=== PATIENT | female | born 1995 | race Two or more races ===

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

== ENCOUNTER 2021-11-29 11:57 | Emergency (ER) | payer SELFPAY ==
[~2021-11-29] VITALS: Ht 152.4 cm; Wt 92.1 kg
[~2021-11-29 11:57] MED LIST: CEPH-264 PO; METR500T PO
[2021-11-29] MEDS ORDERED: IV RINGERS,LACTATED 1000ML 1,000 ML IV ONE (12:30)
[2021-11-29 12:43] LABS: BASO # 0.1 x10^3/uL (0.0-0.2); BASO % 1 % (0-3); EOS # 0.1 x10^3/uL (0.0-0.7); EOS % 1 % (0-3); HEMATOCRIT 38.1 % (36.0-47.0); LYMPH # 1.8 x10^3/uL (1.0-4.8); LYMPH % 20 % (24-48); MEAN CORPUSCULAR HEMOGLOBIN 33 pg (25-35); MEAN CORPUSCULAR HGB CONC 34 g/dL (31-37); MEAN CORPUSCULAR VOLUME 96 fL (79-100); MONO # 0.5 x10^3/uL (0.0-1.1); MONO % 5 % (0-9); NEUT # 6.5 x10^3/uL (1.8-7.7); NEUT % 73 % (31-73); PLATELET COUNT 384 x10^3/uL (140-400); RED BLOOD COUNT 3.98 x10^6/uL (3.50-5.40); RED CELL DISTRIBUTION WIDTH 12.9 % (11.5-14.5); WHITE BLOOD COUNT 8.9 x10^3/uL (4.0-11.0)
[2021-11-29 12:48] LABS: CALCIUM 8.9 mg/dL (8.5-10.1); CREATININE 0.5 mg/dL (0.6-1.0); GFR 151.6; POTASSIUM 3.6 mmol/L (3.5-5.1)
[2021-11-29 12:56] LABS: BACTERIA,URINE FEW /HPF (0-FEW); RBC,URINE 0 /HPF (0-2); WBC,URINE RARE /HPF (0-4)
[2021-11-29 12:59] LABS: ALBUMIN 3.1 g/dL (3.4-5.0); ALBUMIN/GLOBULIN RATIO 0.7 (1.0-1.7); TOTAL BILIRUBIN 0.2 mg/dL (0.2-1.0); TOTAL PROTEIN 7.7 g/dL (6.4-8.2)
[2021-11-29] MEDS ORDERED: ACETAMINOPHEN 325 MG TABLET. PO ONE (13:00)
--- NOTE | 2021-11-29 14:01 | PHYS DOC ---
Past Medical History Past Medical History: No Pertinent History Past Surgical History: No Surgical History Smoking Status: Never Smoker Alcohol Use: None Drug Use: None General Adult EDM: Chief Complaint: ABDOMINAL PAIN IN HPI: HPI: Patient is a 26 year old A2 female at approximately 11 weeks 5 days gestation who presents with central abdominal pain. Patient rates her pain 5/10 and states it radiates to her back. She has been having this pain intermittently over a period greater than two months, beginning before she knew she was . She denies any N/V/D, constipation, dysuria, hematuria, dyspareunia, vaginal bleeding, vaginal discharge. Patient's first two pregnancie s resulted in miscarriage, and she states her current pain feels similar. Patient has an appointment at [facility] to establish care on 12/22/2021. Review of Systems: Review of Systems: Constitutional: See HPI Eyes: Denies change in visual acuity, visual field deficits or discharge HENT: Denies ear pain, nasal congestion or sore throat Respiratory: Denies cough or shortness of breath Cardiovascular: Denies chest pain, palpitations or edema GI: See HPI : See HPI Musculoskeletal: Denies back pain or joint pain Integument: Denies rash or other skin lesion Neurologic: Denies headache, focal weakness or sensory changes Heart Score: C/O Chest Pain: No Current Medications: Current Medications Medications (Trade) Dose Ordered Sig/Christine Start Time Stop Time Status Last Admin Dose Admin Acetaminophen (Tylenol) 650 mg 1X ONCE 11/29/21 13:00 11/29/21 13:01 DC 11/29/21 13:08 650 MG Ringer's Solution 1,000 ml @ 1,000 mls/hr 1X ONCE 11/29/21 12:30 11/29/21 13:29 DC 11/29/21 12:32 1,000 MLS/HR Allergies: Allergies: Allergies Coded Allergies Type Severity Reaction Last Updated Verified No Known Drug Allergies 11/27/16 No Physical Exam: PE: Constitutional: Well developed, well nourished, no acute distress, non-toxic appearance. HENT: Normocephalic, atraumatic, bilateral external ears normal, nose normal. Eyes: EOMI, conjunctiva normal, no discharge. Neck: Normal range of motion, no stridor. Abdomen: Bowel sounds normal, soft, no tenderness, no masses, no pulsatile masses. Skin: Warm, dry, no erythema, no rash. Back: No tenderness, no CVA tenderness. Extremities: No cyanosis, no clubbing, ROM intact, no edema. Neurologic: Alert and oriented x4, normal motor function, normal sensory function, no focal deficits noted. Current Patient Data: Labs: Laboratory Tests Test 11/29/21 12:13 11/29/21 12:16 11/29/21 12:22 Urine Collection Type Unknown Urine Color (Auto) Yellow Urine Turbidity Hazy Urine pH (Auto) 6.0 (<5.0-8.0) Urine Specific [place] 1.027 (1.000-1.030) Urine Protein (Auto) Negative mg/dL (Negative) Urine Glucose (Auto)(UA) Negative mg/dL (Negative) Urine Ketones (Auto) Negative mg/dL (Negative) Urine Blood (Auto) Negative (Negative) Urine Nitrite Negative (Negative) Urine Bilirubin (Auto) Negative (Negative) Urine Urobilinogen (Auto) Normal mg/dL (Normal) Urine Leukocyte Esterase (Auto) Negative (Negative) Urine RBC 0 /HPF (0-2) Urine WBC Rare /HPF (0-4) Urine Squamous Epithelial Cells Many /LPF Urine Bacteria Few /HPF (0-FEW) Urine Mucus Marked /LPF POC Urine HCG, Qualitative Hcg positive (Negative) White Blood Count 8.9 x10^3/uL (4.0-11.0) Red Blood Count 3.98 x10^6/uL (3.50-5.40) Hemoglobin 13.0 g/dL (12.0-15.5) Hematocrit 38.1 % (36.0-47.0) Mean Corpuscular Volume 96 fL (79-100) Mean Corpuscular Hemoglobin 33 pg (25-35) Mean Corpuscular Hemoglobin Concent 34 g/dL (31-37) Red Cell Distribution Width 12.9 % (11.5-14.5) Platelet Count 384 x10^3/uL (140-400) Neutrophils (%) (Auto) 73 % (31-73) Lymphocytes (%) (Auto) 20 % (24-48) L Monocytes (%) (Auto) 5 % (0-9) Eosinophils (%) (Auto) 1 % (0-3) Basophils (%) (Auto) 1 % (0-3) Neutrophils # (Auto) 6.5 x10^3/uL (1.8-7.7) Lymphocytes # (Auto) 1.8 x10^3/uL (1.0-4.8) Monocytes # (Auto) 0.5 x10^3/uL (0.0-1.1) Eosinophils # (Auto) 0.1 x10^3/uL (0.0-0.7) Basophils # (Auto) 0.1 x10^3/uL (0.0-0.2) Maternal Serum HCG Beta Subunit 14616 mIU/mL (0-5) H Sodium Level 135 mmol/L (136-145) L Potassium Level 3.6 mmol/L (3.5-5.1) Chloride Level 103 mmol/L (98-107) Carbon Dioxide Level 25 mmol/L (21-32) Anion Gap 7 (6-14) Blood Urea Nitrogen 10 mg/dL (7-20) Creatinine 0.5 mg/dL (0.6-1.0) L Estimated GFR (Cockcroft-Gault) 151.6 BUN/Creatinine Ratio 20 (6-20) Glucose Level 85 mg/dL (70-99) Calcium Level 8.9 mg/dL (8.5-10.1) Total Bilirubin 0.2 mg/dL (0.2-1.0) Aspartate Amino Transferase (AST) 20 U/L (15-37) Alanine Aminotransferase (ALT) 40 U/L (14-59) Alkaline Phosphatase 88 U/L (46-116) Total Protein 7.7 g/dL (6.4-8.2) Albumin 3.1 g/dL (3.4-5.0) L Albumin/Globulin Ratio 0.7 (1.0-1.7) L Lipase 62 U/L (73-393) L Laboratory Tests 11/29/21 12:22 Laboratory Tests 11/29/21 12:22 CLUE CELLS CLUE CELLS PRESENT ALTERED KD ALTERED KD PRESENT SUGGESTIVE OF BACTERIAL VAGINOSIS Vital Signs: Vital Signs Date Time Temp Pulse Resp B/P (MAP) Pulse Ox O2 Delivery O2 Flow Rate FiO2 11/29/21 15:30 71 16 113/64 (80) 99 Room Air 11/29/21 14:53 76 16 119/76 (90) 98 Room Air 11/29/21 14:16 73 108/59 (75) 100 Room Air 11/29/21 13:46 78 20 115/64 (81) 99 Room Air 11/29/21 13:16 68 109/61 (77) 100 Room Air 11/29/21 12:46 66 20 106/56 (73) 100 Room Air 11/29/21 12:16 76 16 124/66 (85) 100 Room Air 11/29/21 12:05 98.2 79 18 124/66 (85) 100 Room Air 98.2 Radiology/Procedures: Radiology/Procedures: PROCEDURE: OB < 14 WKS OB ultrasound less than 14 weeks and transvaginal OB ultrasound HISTORY: Pelvic pain and Sonographic examination of the pelvis was performed by transabdominal and endovaginal technique. Multiple static images were obtained. Mobile silhouettes of 14 weeks: There is a single live intrauterine . The heartbeat is confirmed at 173 beats per minute. The crown-rump length of 2.5 cm corresponds to a 9 week 2 day gestational age and estimated date of confinement of July 02, 2022. There is no visualization of structures at this early gestational age. The LMP 09/08/2021 corresponds to 11 week 5 day gestational age and estimated date of confinement of June 15, 2022. There is an anterior fibroid that measures 4.0 x 4.0 x 4.2 cm. The ovaries appear normal with normal blood flow. Transvaginal ultrasound pelvis: The right ovary measures 3.1 x 3.1 x 9 size. The left ovary measures 2.1 x 2.2 x 1.5 Jacques. IMPRESSION: 1. Single live intrauterine at 9 weeks 2 days gestational age. Discrepancy with that by LMP is likely secondary to an inaccurate LMP. 2. Probable uterine fibroid not seen in the November 27, 2016 examination. A short-term follow-up ultrasound could be performed if clinically indicated otherwise a structural survey will be performed at 18-21 weeks gestational age. Electronically signed by: Anselmo Elias III, MD (11/29/2021 2:24 PM) [id number] Course & Med Decision Making: Course & Med Decision Making Pertinent Labs and Imaging studies reviewed. (See chart for details) Patient is a 26-year-old female approximately 11 weeks and her sixth who presents with abdominal pain. Work-up today will include urinalysis, labs, wet prep, transvaginal ultrasound. Ultrasound reveals 4 x 4 x 4.2 cm fibroid as well as a single live IUP. Wet prep shows bacterial vaginosis. Patient will be treated with MetroGel. Patient was informed of all findings. Tylenol successfully relieved her pain. I advised that she keep her appointment with [facility] for establishing care. A printout of her ultrasound was provided to take with her to her appointment. Return precautions were provided. Patient understands and is agreeable to discharge plan. Dragon Disclaimer: [employer] Disclaimer: This electronic medical record was generated, in whole or in part, using a voice recognition dictation system. Departure Departure Impression: Primary Impression: Abdominal pain during Qualified Codes: O26.891 - Other specified related conditions, first trimester; R10.9 - Unspecified abdominal pain Additional Impressions: Bacterial vaginosis Uterine fibroid in Disposition: 01 HOME / SELF CARE / HOMELESS Condition: STABLE Referrals: NO PCP (PCP) DINORA SALEEM MD Patient Instructions: Bacterial Vaginosis, [id number], Fibroids, [id number] Additional Instructions: Continue taking tylenol per box instructions for pain. Keep your appointment with [facility] to establish care. EMERGENCY DEPARTMENT GENERAL DISCHARGE INSTRUCTIONS Thank you for coming to [facility] Emergency Department (ED) today and trusting us with you care. We trust that you had a positive experience in our Emergency Department. If you wish to speak to the department management, you may call the director at . YOUR FOLLOW UP INSTRUCTIONS ARE FOLLOWS: 1. Follow up with your primary care doctor. If you do not have a primary doctor, please ask for a resource list of physicians or clinics that may be able to assist you with follow up care. 2. The emergency provider has interpreted your imaging studies, if any were ordered. The radiology medical imaging technician also reviewed them. If there is a change in the findings, you will be notified in 48 hours when at all possible. 3. If a lab test or culture has been done, your results will be reviewed and you will be notified if you need a change in treatment. 4. Follow instructions verbalized to you and refer to the printouts if needed. ADDITIONAL INSTRUCTIONS AND INFORMATION: 1. Your care today has been supervised by a physician who is specially trained in emergency care. Many problems require more than one evaluation for a complete diagnosis and treatment. We recommend that you schedule your follow up appointment as recommended to ensure complete treatment of you illness or injury. If you are unable to obtain follow up care and continue to have a problem, or if your condition worsens, we recommend that you return to the ED. 2. We are not able to safely determine your condition over the phone nor are we able to give sound medical advice over the phone. For these safety reasons, if you call for medical advice we will ask you to come to the ED for further evaluation. 3. If you have any questions regarding these discharge instructions please call the ED at . SAFETY INFORMATION: In the interest of safety, wellness, and injury prevention; we encourage you to wear your seat belt, if you smoke; quite smoking, and we encourage family to use a protective helmet for bicycling and other sporting events that present an increased risk for head injury. IF YOUR SYMPTOMS WORSEN OR NEW SYMPTOMS DEVELOP, OR YOU HAVE CONCERNS ABOUT YOUR CONDITION; OR IF YOUR CONDITION WORSENS WHILE YOU ARE WAITING FOR YOUR FOLLOW UP APPOINTMENT; EITHER CONTACT YOUR PRIMARY CARE DOCTOR, THE PHYSICIAN WHOSE NAME AND NUMBER YOU WERE GIVEN, OR RETURN TO THE ED IMMEDIATELY. Scripts Metronidazole (METRONIDAZOLE) 70 Gm Gel.w.appl 1 APPFUL VG QHS for 7 Days, #70 GM Prov: RENU ELIZALDE 11/29/21 RENU ELIZALDE Nov 29, 2021 14:01
--- NOTE | 2021-11-29 14:26 | RAD ---
OB ultrasound less than 14 weeks and transvaginal OB ultrasound HISTORY: Pelvic pain and Sonographic examination of the pelvis was performed by transabdominal and endovaginal technique[facility]. Mobile silhouettes of 14 weeks: There is a single live intrauterine . The heartbeat is confirmed at 173 beats per minute. The crown-rump length of 2.5 cm corresponds to a 9 week 2 day gestational age and estimated date of c onfinement of July 02, 2022. There is no visualization of structures at this early gestational age. The LMP 09/08/2021 corresponds to 11 week 5 day gestational age and estimated date of confinement of N ovember 2021. There is an anterior fibroid that measures 4.0 x 4.0 x 4.2 cm. The ovaries appear normal with normal blood flow. Transvaginal ultrasound pelvis: The right ovary measures 3.1 x 3.1 x 9 size. The left ovary measures 2.1 x 2.2 x 1.5 Jacques. IMPRESSION: 1. Single live intrauterine at 9 weeks 2 days gestational age. Discrepancy with that by LMP is likely secondary to an inaccurate LMP. 2. Probable uterine fibroid not seen in the November 27, 2016 examination. A short-term follow-up ultrasound could be performed if clinically indicated otherwise a structural f etal survey will be performed at 18-21 weeks gestational age. Electronically signed by: Anselmo Elias III, MD (11/29/2021 2:24 PM) [id number]
[2021-11-29] MEDS ORDERED: METR70GE2 VG (15:07)
[2021-11-29 15:30] VITALS: BP 113/64
== END 2021-11-29 16:03 | disposition home or self-care (01) ==
LOC: ER 11:57
DX: O23.591 Infection of other part of genital tract in pregnancy, first trimester (principal); B96.89 Other specified bacterial agents as the cause of diseases classified elsewhere; O34.11 Maternal care for benign tumor of corpus uteri, first trimester; D25.9 Leiomyoma of uterus, unspecified; Z3A.09 9 weeks gestation of pregnancy
CPT/HCPCS: 36415; 76801; 80053; 81001; 81025; 83690; 84702; 85025; 87491; 87591; 96360; 99285; J7120; Q0111

== ENCOUNTER 2022-01-02 17:07 | Emergency (ER) | payer SELFPAY ==
[~2022-01-02] VITALS: Ht 152.4 cm; Wt 88.6 kg
[~2022-01-02 17:07] MED LIST changes: +METR70GE2 VG
[2022-01-02] MEDS ORDERED: ONDANSETRON ODT 4 MG TAB.RAPDIS. PO ONE (18:00)
[2022-01-02] MEDS ORDERED: ACETAMINOPHEN 500 MG TABLET PO ONE (18:00)
--- NOTE | 2022-01-02 19:07 | PHYS DOC ---
Past Medical History Past Medical History: No Pertinent History Past Surgical History: No Surgical History Smoking Status: Never Smoker Alcohol Use: None Drug Use: None General Adult EDM: Chief Complaint: HEADACHE HPI: HPI: Patient is a 26 year old A2 female at approximately 14 weeks 1 day gestational age who presents with multiple symptoms. Patient has had a headache for 3 days, a measured fever of 103 F last night and multiple episodes of emesis beginning at 1430 this afternoon. Patient states that she took Tylenol last night without symptom relief. She denies chills, generalized weakness, abdominal pain, diarrhea, constipation, hematemesis, vision changes, lightheadedness or paresthesias. Patient was treated last month for bacterial vaginosis, and she reports those symptoms have resolved. Review of Systems: Review of Systems: Constitutional: See HPI Eyes: Denies change in visual acuity, visual field deficits or discharge HENT: Denies ear pain, nasal congestion or sore throat Respiratory: Denies cough or shortness of breath Cardiovascular: Denies chest pain, palpitations or edema GI: See HPI : Denies dysuria or hematuria Musculoskeletal: Denies back pain or joint pain Integument: Denies rash or other skin lesion Neurologic: See HPI Heart Score: C/O Chest Pain: No Current Medications: Current Medications Medications (Trade) Dose Ordered Sig/[facility] Start Time Stop Time Status Last Admin Dose Admin Acetaminophen (Tylenol) 500 mg 1X ONCE 01/02/22 18:00 01/02/22 18:01 DC 01/02/22 18:29 500 MG Ondansetron HCl (Zofran Odt) 4 mg 1X ONCE 01/02/22 18:00 01/02/22 18:01 DC 01/02/22 18:29 4 MG Allergies: Allergies: Allergies Coded Allergies Type Severity Reaction Last Updated Verified No Known Drug Allergies 01/02/22 No Physical Exam: PE: Constitutional: Well developed, well nourished, no acute distress, non-toxic appearance. HENT: Normocephalic, atraumatic, bilateral external ears normal, MMM. Eyes: EOMI, conjunctiva normal, no discharge. Neck: Normal range of motion, no stridor. Abdomen: Bowel sounds normal, soft, no tenderness, no pulsatile masses. Skin: Warm, dry, no erythema, no rash. Extremities: No cyanosis, no clubbing, ROM intact, no edema. Neurologic: Alert and oriented x4, normal motor function, normal sensory function, no focal deficits noted. Current Patient Data: Labs: Laboratory Tests Test 01/02/22 18:30 Influenza Type A Antigen Negative (NEGATIVE) Influenza Type B Antigen Negative (NEGATIVE) SARS-CoV-2 Antigen (Rapid) Negative (NEGATIVE) Vital Signs: Vital Signs Date Time Temp Pulse Resp B/P (MAP) Pulse Ox O2 Delivery O2 Flow Rate FiO2 01/02/22 20:45 83 20 111/68 (82) 97 01/02/22 17:20 98.2 105 16 140/95 (110) 96 Room Air 98.2 Course & Med Decision Making: Course & Med Decision Making Pertinent Labs and Imaging studies reviewed. (See chart for details) Is a 26-year-old female approximately 14 weeks gestation who presents with headache and vomiting with reported fever of 103 F yesterday. Patient took 1 dose of Tylenol last night, which she states did not help her headache or fever. Today, she is afebrile and has not vomited during her stay in the department. Labs do not reveal any acute concerns. Patient is advised to rehydrate with electrolyte beverage. She was provided with Zofran ODT for nausea. Return precautions are provided. Patient understands and is agreeable to discharge plan Alma Disclaimer: Alma Disclaimer: This electronic medical record was generated, in whole or in part, using a voice recognition dictation system. Departure Departure Impression: Primary Impression: Viral syndrome Additional Impression: Nausea/vomiting in Disposition: 01 HOME / SELF CARE / HOMELESS Condition: IMPROVED Referrals: NO PCP (PCP) Patient Instructions: Medicines During , Viral Syndrome Additional Instructions: EMERGENCY DEPARTMENT GENERAL DISCHARGE INSTRUCTIONS Thank you for coming to [facility] Emergency Department (ED) today and trusting us with your care. We trust that you had a positive experience in our Emergency Department. If you wish to speak to the department management, you may call the director at . YOUR FOLLOW UP INSTRUCTIONS ARE FOLLOWS: 1. Follow up with your primary care doctor. If you do not have a primary doctor, please ask for a resource list of physicians or clinics that may be able to assist you with follow up care. 2. The emergency provider has interpreted your imaging studies, if any were ordered. The radiology document imaging specialist also reviewed them. If there is a change in the findings, you will be notified in 48 hours when at all possible. 3. If a lab test or culture has been done, your results will be reviewed and you will be notified if you need a change in treatment. 4. Follow instructions verbalized to you and refer to the printouts if needed. ADDITIONAL INSTRUCTIONS AND INFORMATION: 1. Your care today has been supervised by a physician who is specially trained in emergency care. Many problems require more than one evaluation for a complete diagnosis and treatment. We recommend that you schedule your follow up appointment as recommended to ensure complete treatment of you illness or injury. If you are unable to obtain follow up care and continue to have a problem, or if your condition worsens, we recommend that you return to the ED. 2. We are not able to safely determine your condition over the phone nor are we able to give sound medical advice over the phone. For these safety reasons, if you call for medical advice we will ask you to come to the ED for further evaluation. 3. If you have any questions regarding these discharge instructions please call the ED at . SAFETY INFORMATION: In the interest of safety, wellness, and injury prevention; we encourage you to wear your seat belt, if you smoke; quite smoking, and we encourage family to use a protective helmet for bicycling and other sporting events that present an increased risk for head injury. IF YOUR SYMPTOMS WORSEN OR NEW SYMPTOMS DEVELOP, OR YOU HAVE CONCERNS ABOUT YOUR CONDITION; OR IF YOUR CONDITION WORSENS WHILE YOU ARE WAITING FOR YOUR FOLLOW UP APPOINTMENT; EITHER CONTACT YOUR PRIMARY CARE DOCTOR, THE PHYSICIAN WHOSE NAME AND NUMBER YOU WERE GIVEN, OR RETURN TO THE ED IMMEDIATELY. Scripts Ondansetron (ONDANSETRON ODT) 4 Mg Tab.rapdis 1 TAB PO PRN Q6-8HRS, #30 TAB Prov: RENU ELIZALDE 01/02/22 RENU ELIZALDE January 02, 2022 19:07
[2022-01-02 19:14] LABS: INFLUENZA A PATIENT NEGATIVE (NEGATIVE); INFLUENZA B PATIENT NEGATIVE (NEGATIVE)
[2022-01-02] MEDS ORDERED: ONDA4TAB12 PO (19:34)
[2022-01-02 20:45] LABS: BASO % 1 % (0-3); EOS % 0 % (0-3); HEMATOCRIT 37.1 % (36.0-47.0); HEMOGLOBIN 12.9 g/dL (12.0-15.5); LYMPH % 17 % (24-48); MEAN CORPUSCULAR HEMOGLOBIN 33 pg (25-35); MEAN CORPUSCULAR HGB CONC 35 g/dL (31-37); MEAN CORPUSCULAR VOLUME 94 fL (79-100); MONO # 0.2 x10^3/uL (0.0-1.1); MONO % 4 % (0-9); NEUT # 4.4 x10^3/uL (1.8-7.7); NEUT % 78 % (31-73); PLATELET COUNT 268 x10^3/uL (140-400); RED BLOOD COUNT 3.94 x10^6/uL (3.50-5.40); RED CELL DISTRIBUTION WIDTH 12.7 % (11.5-14.5); WHITE BLOOD COUNT 5.7 x10^3/uL (4.0-11.0)
[2022-01-02 20:51] LABS: CREATININE 0.5 mg/dL (0.6-1.0); GFR 151.6; POTASSIUM 3.4 mmol/L (3.5-5.1)
[2022-01-02 20:58] LABS: ALBUMIN 2.8 g/dL (3.4-5.0); ALBUMIN/GLOBULIN RATIO 0.6 (1.0-1.7); TOTAL BILIRUBIN 0.3 mg/dL (0.2-1.0); TOTAL PROTEIN 7.5 g/dL (6.4-8.2)
[2022-01-02 21:48] VITALS: BP 112/70
== END 2022-01-02 22:01 | disposition home or self-care (01) ==
LOC: ER 17:07
DX: O98.512 Other viral diseases complicating pregnancy, second trimester (principal); B34.9 Viral infection, unspecified; O21.9 Vomiting of pregnancy, unspecified; Z20.822 Contact with and (suspected) exposure to COVID-19; Z3A.14 14 weeks gestation of pregnancy
CPT/HCPCS: 36415; 80053; 83690; 85025; 87428; 99283; C9803; U0003